=== PATIENT | female | born 1980 | race Hispanic/Latino ===

== ENCOUNTER 2017-06-19 06:29 | Day surgery (SDC) | payer MEDICAID ==
[2017-06-19 06:33] VITALS: BMI 25.0
[2017-06-19 06:47] VITALS: O2SAT 100
[2017-06-19] MEDS ORDERED: TDAP Vaccine 0.5 mL Syr IM ONE (07:19)
[2017-06-19] MEDS ORDERED: ceFAZolin 1 gm in NS 1 GM/100 ML BAG IVPB STA (07:19)
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
--- NOTE | 2017-06-19 09:10 | RAD ---
PROCEDURE: Right forearm dated 06/19/2017. HISTORY: Rule out foreign body. COMPARISON: No prior FINDINGS: Current study reveals no evidence of acute displaced fracture nor dislocation. The osseous structures appear intact. . No obvious cortical destructive changes. Joint spaces preserved. There does appear to be extensive disruption of the dorsal soft tissues. Clinical correlation with physical exam. No radiopaque foreign body identified. IMPRESSION: No evidence of acute displaced fracture nor dislocation. Extensive disruption changes of the dorsal soft tissues. No definitive radiopaque foreign bodies
[2017-06-19 09:44] LABS: BASO # 0.03 K/mm3 (0.0-2.0); BASO % 0.3 % (0.0-3.0); EOS # 0.1 (0.0-0.7); EOS % 0.9 % (1.5-5.0); GRAN # 8.51 (1.4-6.5); HEMOGLOBIN 12.5 g/dL (12.0-16.0); LYMPH # 1.2 (1.2-3.4); LYMPH % 11.8 % (22.0-35.0); MEAN CELL VOLUME 88.5 fl (80.0-105.0); MEAN CORPUSCULAR HEMOGLOBIN 28.9 pg (25.0-35.0); MEAN CORPUSCULAR HGB CONC 32.6 g/dl (31.0-37.0); MEAN PLATELET VOLUME 10.2 fl (7.0-11.0); MONO # 0.5 (0.1-0.6); RBC 4.33 10^6/uL (3.5-6.1); RED CELL DISTRIBUTION WIDTH 14.6 % (11.5-14.5); WHITE BLOOD COUNT 10.4 10^3/ul (4.5-11.0)
[2017-06-19 09:48] LABS: ALB/GLOB RATIO 1.6 (1.1-1.8); ALBUMIN 3.6 g/dL (3.0-4.8); ALT/SGPT 31 U/L (7-56); AST/SGOT 18 U/L (14-36); BLOOD UREA NITROGEN 11 mg/dL (7-21); GFR AFRICAN-AMERICAN > 60; GFR NON-AFRICAN AMERICAN > 60
[2017-06-19 09:49] LABS: INR 0.93 (0.93-1.08); PARTIAL THROMBOPLASTIN TIME 27.5 Seconds (25.1-36.5); PROTHROMBIN TIME 10.7 SECONDS (9.4-12.5)
[2017-06-19] MEDS ORDERED: Propofol 10 mg/ml Inj (20 ML) ONE ×2 (10:58→11:01)
--- NOTE | 2017-06-19 11:25 | CP.SDSHP ---
Same Day Surgery H & P - History Proposed Procedure: R forearm wound exploration and repair Pre-Op Diagnosis: Complex R forearm LAC - Previous Medical/Surgical History Comments: No PMH Previous Surgical History: - Allergies Allergies: Allergies No Known Allergies Allergy (Verified 06/19/17 06:33) - Current Medications Current Medications: none - Physical Exam General Appearance: Well nourished, NAD Vital Signs: Vital Signs 06/19/17 06/19/17 06:46 10:02 Temperature 98.2 F Pulse Rate 103 H 86 Respiratory 18 18 Rate Blood Pressure 148/72 115/80 O2 Sat by Pulse 100 100 Oximetry Mental Status: Alert & Oriented x3 Neuro: WNL Heart: WNL Lungs: WNL GI: WNL - {Optional Preform as Required} Other Pertinent Findings: Complex LAC dorsal R forearm ~30x7cm extending down to muscle, neurovascularly intact w. normal motor fxn - Impression Impression: 37F w. complex LAC R forearm to OR for wound exploration and repair Pt. Evaluated Today:Candidate for Anesthesia & Procedure: Yes - Date & Time Date: 06/19/17 Time: 11:26 Short Stay Discharge - Short Stay Discharge Admitting Diagnosis/Reason for Visit: LACERATION RIGHT ARM Disposition: HOME/ ROUTINE Medications: Cephalexin [Keflex] 500 mg PO Q12 5 Days #10 capsule Referrals: PCP,NO [Primary Care Provider] - Follow up with primary Follow-up: Follow up in 1 week, leave dressing in place. Use sling while awake. Tylenol/ motrin for pain. Antibiotics as instructed. Call office or return to ED if concerns arise. Instructions: Skin Graft, Laceration Repair, Cephalexin Progress Note/Discharge Note with Instructions: 37F s/p washout of complex R forearm LAC w. repair via primary closure, advancement flap and skin graft x 2.
[2017-06-19] MEDS ORDERED: HYDROmorphone 1 mg/ml ISec IVP PRN ×3 (12:04→14:04)
[2017-06-19] MEDS ORDERED: Lactated Ringer's 1,000 ML IV SCH ×2 (12:15)
[2017-06-19] MEDS ORDERED: Midazolam 2 MG/2 ML VIAL ONE ×2 (12:20→12:33)
[2017-06-19] MEDS ORDERED: Lidocaine 1% Inj (20ml) ONE (12:28)
[2017-06-19] MEDS ORDERED: Bupivacaine 0.5% Inj(30mL) ONE (12:28)
--- NOTE | 2017-06-19 13:48 | PCM.SURG1 ---
Surgeon's Initial Post Op Note - Surgeon's Notes Surgeon: Sergio Dry Talc Racker: Kayla PGY3 Type of Anesthesia: IV Sedation, Local Pre-Operative Diagnosis: Complex R forearm LAC Operative Findings: Complex R forearm LAC extending down to muscle Post-Operative Diagnosis: same Operation Performed: washout of wound, repair via primary closure, advancement flap, and skin graft x 2 Specimen/Specimens Removed: none Estimated Blood Loss: EBL {In ML}: 10 Blood Products Given: N/A Drains Used: No Drains Post-Op Condition: Good Date of Surgery/Procedure: 06/19/17 Time of Surgery/Procedure: 13:48
[2017-06-19 16:40] VITALS: BP 113/78; PULSE 57; RESP 20; TEMP 97.6
--- NOTE | 2017-06-20 09:43 | CARD ---
APPROVED REPORT EKG Measurement Heart [id number] <Conclusion> Sinus bradycardia RVCD Otherwise normal ECG
--- NOTE | 2017-06-27 23:14 | OP ---
PROCEDURE DATE: 06/19/2017 PREOPERATIVE DIAGNOSIS: Complex laceration of the right forearm. POSTOPERATIVE DIAGNOSIS: Complex laceration of the right forearm. OPERATION PERFORMED: Repair of complex laceration with bilateral advancement flaps and full thickness graft to the arm x2. DESCRIPTION OF PROCEDURE: The patient was identified by name, name of procedure, laterality, and my mukund, and the previously marked arm was identified. The patient has gotten tetanus. After the successful time-out, the operation began. The arm was prepped and draped in the usual manner using a stockinette and the laceration was identified without issue. The thumb was examined. There was a small laceration on the tip and this was dressed with Gelfoam and Coban. The complex laceration had a V on the proximal end, and distally a clearly necrotic or ischemic distal end on a pedicle of a couple of millimeters. This was amputated, but kept aside on saline. The area was prepped and draped in the usual manner. The area was cleaned, dried. The tip of the V was brought up to the middle of the wound and sutured with a temporary tensioning suture. This allowed advancement flaps on both sides of the proximal arm to be taken using Vicryl. Several leads were placed for tension and the incision was closed with Vicryl, nylon and several sukumar. The other ends of the wound more distally were with complete tissue loss. The flap that was identified was cleaned, defatted. A portion of it was a split thickness, the other was a full thickness. Full thickness was used distally. It was sutured in place with sukumar and then tensioned with nylon mattress stitches. The split thickness graft was done on the ulnar side and this was sutured with sukumar, nylon. Thereafter, the wound looked excellent. Non-stick was placed over the entire the wound. A pressure was applied followed by Kerlix and Coban. Placed in a sling. The patient was taken to recovery room in good condition after the sponge and needle counts were counted correct. Juan R Hill MD
== END 2017-06-19 17:00 | disposition home or self-care (01) ==
LOC: ED 06:29 → MERGE 12:40 → SDS 12:40 → 3RNO 14:54 → SDS 17:00
PROVIDERS: ATTEND Surgery
DX: S51.811A Laceration without foreign body of right forearm, initial encounter (principal); W22.09XA Striking against other stationary object, initial encounter; Y93.89 Activity, other specified; Y92.9 Unspecified place or not applicable; F17.210 Nicotine dependence, cigarettes, uncomplicated
CPT/HCPCS: 13121; 73090; 80053; 85025; 85610; 85730; 90471; 90715; 93005; 99285; J0690; J1170; J1885; J2250; J2704; J3010; J7120